=== PATIENT | male | born 1945 | race Caucasian/White ===

== ENCOUNTER 2016-04-22 18:55 | Observation (INO) | payer OTHER ==
[~2016-04-22] VITALS: Ht 180.3 cm; Wt 76.9 kg
[~2016-04-22 18:55] MED LIST: ACETAZOLAMIDE500 MG PO; ADVAIR 250/501 DISK IH; ALBUTEROL2.5 MG/3 M IH; AMOX TR-K CLV1 EAC4 PO; ASPIR-TRIN325 M1 PO; ASPIRIN EC325 MG PO; ASPIRIN325 MG PO; BRIMONIDINE TAR10 ML RIGHT EYE; CEFDINIR300 MG PO; CEFUROXIME500 MG PO; DALIRESP500 MCG PO; DIABETA1.25 MG PO; DILTIAZEM ER180 M1 PO; DOCUSATE SODIU100 MG PO; DOXYCYCLINE HY100 MG PO; DUONEB 2.5-0.5 M3 ML IH; ENDOCET 5-3251 EACH PO; FLONASE16 G1 BOTH NARES; FLORASTOR250 MG PO; LEVAQUIN750 MG PO; LEVOFLOXACIN500 MG PO; LEVOFLOXACIN750 MG PO; LISINOPRIL20 MG PO; LOPRESSOR25 MG PO; MUCINEX D1 TABLET PO; MUCINEX600 MG PO; NASONEX17 GM BOTH NARES; NICOTINE PATCH1 EAC1 TD; NICOTINE PATCH1 EAC2 TD; PANTOPRAZOLE SO40 MG PO; PERCOCET 5/31 TABLET PO; PREDNISOLONE AC15 ML RIGHT EYE; PREDNISONE10 MG PO; PREDNISONE20 MG PO; PREDNISONE5 MG PO; PREDNISONE50 MG PO; PRINIVIL20 MG PO; PRINZIDE 20-121 EACH PO; PROAIR HFA8.5 GM IH; PROTONIX40 MG PO; SIMVASTATIN40 M1 PO; SIMVASTATIN40 MG PO; SINGULAIR10 MG PO; SPIRIVA1 INHALATI IH; VIAGRA100 MG PO; ZOCOR40 MG PO; ZYRTEC10 M3 PO
[2016-04-22 19:38] LABS: EOSINOPHIL (%) 0.7 % (0-5); EOSINOPHIL COUNT 0.1 K/uL (0-0.3); HEMATOCRIT 43.5 % (38.0-50.0); IMMATURE GRANULOCYTE (%) 0.1 % (0.0-0.7); IMMATURE GRANULOCYTE COUNT 0.2 K/uL; LYMPHOCYTE COUNT 1.1 K/uL (1.0-2.8); MCH 29.1 PG (29.0-34.0); MEAN PLAT.VOLUME 10.7 uM^3 (9.0-12.4); MONOCYTE (%) 4.2 % (3-12); MONOCYTE COUNT 0.7 K/uL (0-0.8); NEUTROPHIL (%) 88.3 % (45-76); NEUTROPHIL COUNT 14.5 K/uL (1.8-6.4); PLATELET COUNT 188 K/uL (156-360); RBC DIS.WIDTH-CV 13.5 % (11.8-14.6); RBC DIS.WIDTH-SD 43.7 % (39-53); RED BLOOD COUNT 4.78 M/uL (4.00-5.50); WHITE BLOOD COUNT 16.4 K/uL (4.1-10.2)
[2016-04-22 19:50] LABS: CHLORIDE 104 mEq/L (99-109); POTASSIUM 4.3 mEq/L (3.7-5.4); SODIUM 145 mEq/L (136-147)
[2016-04-22 19:52] LABS: GLUCOSE 125 mg/dL (70-99)
[2016-04-22 19:53] LABS: ANION GAP 11 MEQ/L (2-14)
[2016-04-22 19:54] LABS: TOTAL BILIRUBIN 0.5 mg/dL (0.0-1.0)
[2016-04-22 19:56] LABS: ALKALINE PHOSPHATASE 76 IU/L (3-129); GFR ESTIMATE (CALCULATED) > 59 mL/min/
[2016-04-22 19:57] LABS: UREA NITROGEN (BUN) 14 mg/dL (9-23)
[2016-04-22 19:59] LABS: TROP-I INTERPRETATION NEGATIVE; TROPONIN-I < 0.01 ng/mL (0.0-0.30)
[2016-04-22] MEDS ORDERED: PREDNISONE5 MG PO (21:56)
[2016-04-22] MEDS ORDERED: OMEPRAZOLE40 M1 PO (21:56)
[2016-04-22] MEDS ORDERED: PENTOXIFYLLINE400 MG PO (21:57)
[2016-04-22] MEDS ORDERED: CYCLOBENZAPRINE10 MG PO (21:57)
[2016-04-22] MEDS ORDERED: CILOSTAZOL100 MG PO (21:57)
[2016-04-22 23:46] VITALS: BP 171/84
[2016-04-23 03:55] LABS: ADD MIUA? NO; BILIRUBIN NEGATIVE; BLOOD NEGATIVE; COLOR YELLOW ((YELLOW)); GLUCOSE (STRIP) 250; KETONES NEGATIVE; LEUKOCYTES NEGATIVE; NITRITE NEGATIVE; PROTEIN (STRIP) NEGATIVE; SPECIFIC GRAVITY 1.019 (1.000-1.030); UROBILINOGEN 0.2 MG/DL (0.2-1.0)
[2016-04-23 04:17] VITALS: BP 115/60
[2016-04-23 08:18] VITALS: BP 129/55
[2016-04-23] MEDS ORDERED: LEVAQUIN750 MG PO (13:38)
[2016-04-23] MEDS ORDERED: PREDNISONE10 MG PO (13:38)
== END 2016-04-23 14:18 | disposition home or self-care (01) ==
LOC: EME → EDBD 18:55 → EME 18:55 → 5WEST 22:25 → EDOF 22:25 → 5WEST 23:22
PROVIDERS: Emergency Medicine
DX: J44.1 Chronic obstructive pulmonary disease with (acute) exacerbation (principal); R09.02 Hypoxemia; R06.02 Shortness of breath; E78.5 Hyperlipidemia, unspecified; I73.9 Peripheral vascular disease, unspecified; I71.9 Aortic aneurysm of unspecified site, without rupture; F17.200 Nicotine dependence, unspecified, uncomplicated; Z79.51 Long term (current) use of inhaled steroids; Z79.82 Long term (current) use of aspirin; Z79.899 Other long term (current) drug therapy; Z88.0 Allergy status to penicillin
CPT/HCPCS: 71010; 80053; 81003; 83605; 84484; 85025; 87040; 93005; 94640; 94640 76; 94644; 94760; 94799; 99202; 99281; 99285; G0378; J1100; J1956; J2930; J3475; J7030

== ENCOUNTER → 2016-06-14 | Outpatient (CLI) | payer OTHER ==
[~2016-06-14] MED LIST changes: +CILOSTAZOL100 MG PO; +CYCLOBENZAPRINE10 MG PO; +OMEPRAZOLE40 M1 PO; +PENTOXIFYLLINE400 MG PO
== END | disposition home or self-care (01) ==
LOC: EKG 12:42
DX: Z01.810 Encounter for preprocedural cardiovascular examination (principal); I71.4 Abdominal aortic aneurysm, without rupture
CPT/HCPCS: 93306

== ENCOUNTER 2016-08-02 10:17 | Emergency (ER) | payer OTHER ==
[~2016-08-02] VITALS: Ht 177.8 cm; Wt 74.9 kg
[2016-08-02 11:25] LABS: EOSINOPHIL (%) 0.8 % (0-5); EOSINOPHIL COUNT 0.1 K/uL (0-0.3); IMMATURE GRANULOCYTE (%) 0.8 % (0.0-0.7); IMMATURE GRANULOCYTE COUNT 0.1 K/uL; INSTRUMENT ABS NEUTROPHIL CT 7.1 K/uL; LYMPHOCYTE COUNT 1.1 K/uL (1.0-2.8); MCH 26.6 PG (29.0-34.0); MCV 88.6 FL (86-99); MEAN PLAT.VOLUME 10.4 uM^3 (9.0-12.4); MONOCYTE (%) 7.2 % (3-12); MONOCYTE COUNT 0.7 K/uL (0-0.8); NEUTROPHIL (%) 79.1 % (45-76); NEUTROPHIL COUNT 7.1 K/uL (1.8-6.4); PLATELET COUNT 242 K/uL (156-360); RBC DIS.WIDTH-CV 14.6 % (11.8-14.6); RBC DIS.WIDTH-SD 47.8 % (39-53); RED BLOOD COUNT 3.95 M/uL (4.00-5.50)
[2016-08-02 11:31] LABS: INTER. NORMALIZED RATIO 1.1; PROTHROMBIN TIME 11.6 (9.2-11.2)
[2016-08-02 11:40] LABS: CHLORIDE 101 mEq/L (99-109); POTASSIUM 4.1 mEq/L (3.7-5.4); SODIUM 144 mEq/L (136-147)
[2016-08-02 11:42] LABS: GLUCOSE 118 mg/dL (70-99)
[2016-08-02 11:43] LABS: ANION GAP 7 MEQ/L (2-14)
[2016-08-02 11:46] LABS: GFR ESTIMATE (CALCULATED) > 59 mL/min/
[2016-08-02 11:47] LABS: UREA NITROGEN (BUN) 15 mg/dL (9-23)
[2016-08-02 15:21] VITALS: BP 144/80
== END 2016-08-02 15:22 | disposition home or self-care (01) ==
LOC: EME 10:17
PROVIDERS: Emergency Medicine
DX: M79.605 Pain in left leg (principal); Z98.890 Other specified postprocedural states; Z95.828 Presence of other vascular implants and grafts; I10 Essential (primary) hypertension; E78.5 Hyperlipidemia, unspecified; J44.9 Chronic obstructive pulmonary disease, unspecified; J45.909 Unspecified asthma, uncomplicated; Z95.5 Presence of coronary angioplasty implant and graft; Z99.81 Dependence on supplemental oxygen; Z79.82 Long term (current) use of aspirin; Z87.891 Personal history of nicotine dependence
CPT/HCPCS: 80048; 85025; 85610; 93005; 93926; 93971; 99281; 99284

== ENCOUNTER 2017-04-10 11:44 | Inpatient (IN) | payer OTHER ==
[~2017-04-10] VITALS: Ht 180.3 cm; Wt 77.2 kg
[~2017-04-10 11:44] MED LIST changes: +PRINIVIL10 MG PO; -PRINIVIL20 MG PO
[2017-04-10 12:44] LABS: BASOPHIL (%) 0.2 % (0-1); EOSINOPHIL (%) 0.9 % (0-5); EOSINOPHIL COUNT 0.1 K/uL (0-0.3); HEMATOCRIT 39.8 % (38.0-50.0); HEMOGLOBIN 12.8 G/DL (12.5-16.6); IMMATURE GRANULOCYTE (%) 0.4 % (0.0-0.7); LYMPHOCYTE (%) 9.4 % (15-42); MCH 27.2 PG (29.0-34.0); MCHC 32.2 G/DL (30.0-36.0); MCV 84.7 FL (86-99); MONOCYTE COUNT 0.9 K/uL (0-0.8); NEUTROPHIL (%) 81.1 % (45-76); NEUTROPHIL COUNT 8.8 K/uL (1.8-6.4); PLATELET COUNT 152 K/uL (156-360); RBC DIS.WIDTH-CV 14.3 % (11.8-14.6); RBC DIS.WIDTH-SD 44.2 % (39-53); WHITE BLOOD COUNT 10.9 K/uL (4.1-10.2)
[2017-04-10 12:54] LABS: CHLORIDE 101 mEq/L (99-109); POTASSIUM 3.7 mEq/L (3.7-5.4); SODIUM 138 mEq/L (136-147)
[2017-04-10 12:56] LABS: GLUCOSE 95 mg/dL (70-99)
[2017-04-10 13:00] LABS: CREATININE 0.6 mg/dL (0.6-1.3); GFR ESTIMATE (CALCULATED) > 59 mL/min/ (58.99-99999)
[2017-04-10 13:01] LABS: UREA NITROGEN (BUN) 11 mg/dL (9-23)
[2017-04-10] MEDS ORDERED: FLOMAX0.4 MG PO (16:57)
[2017-04-10] MEDS ORDERED: PREDNISONE10 MG PO (16:57)
[2017-04-10] MEDS ORDERED: NORCO 5/3251 TABLET PO (16:58)
[2017-04-10] MEDS ORDERED: LYRICA200 MG PO (16:58)
[2017-04-10 19:40] VITALS: BP 138/64
[2017-04-10 23:15] VITALS: BP 163/77
[2017-04-11 03:40] VITALS: BP 174/84
[2017-04-11 06:07] LABS: HEMATOCRIT 38.9 % (38.0-50.0); HEMOGLOBIN 12.3 G/DL (12.5-16.6); MCH 26.5 PG (29.0-34.0); MCHC 31.6 G/DL (30.0-36.0); MCV 83.8 FL (86-99); PLATELET COUNT 192 K/uL (156-360); RBC DIS.WIDTH-CV 14.1 % (11.8-14.6); RBC DIS.WIDTH-SD 43.1 % (39-53); RED BLOOD COUNT 4.64 M/uL (4.00-5.50); WHITE BLOOD COUNT 9.1 K/uL (4.1-10.2)
[2017-04-11 06:32] LABS: CHLORIDE 103 MEQ/L (99-109); CREATININE 0.6 MG/DL (0.6-1.3); GFR ESTIMATE (CALCULATED) > 59 mL/min/ (58.99-99999); GLUCOSE 127 mg/dL (70-99); POTASSIUM 4.1 MEQ/L (3.7-5.4); SODIUM 141 MEQ/L (136-147); UREA NITROGEN (BUN) 13 mg/dL (9-23)
[2017-04-11 07:15] VITALS: BP 144/67
[2017-04-11 11:47] VITALS: BP 110/53
[2017-04-11 16:41] VITALS: BP 128/59
[2017-04-11 19:22] VITALS: BP 129/93
[2017-04-11 23:37] VITALS: BP 143/69
[2017-04-12 03:58] VITALS: BP 133/62
[2017-04-12 07:57] VITALS: BP 147/67
[2017-04-12 12:06] VITALS: BP 142/60
[2017-04-12 15:33] VITALS: BP 136/62
[2017-04-12 18:17] LABS: BASE EXCESS 7.3 mEq/L (-3 to +3); BICARBONATE 33.9 mEq/L (22-26); CARBOXY HGB 1.8 % (0-5); COMMENTS - BLOOD GASES C+; DEVICE HHFNC; FI02 50 %; METHEMOGLOBIN 1.7 % (0-1.5); O2 FLOW 50 L/MIN; PCO2 56 mm Hg (35-45); PO2 89 mm Hg (80-100); SITE RR; TOTAL RESP RATE 24 resp/min; pH 7.39 (7.35-7.45)
[2017-04-12 19:37] VITALS: BP 146/70
[2017-04-12 23:38] VITALS: BP 144/61
[2017-04-13 03:35] VITALS: BP 151/66
[2017-04-13 07:54] VITALS: BP 163/78
[2017-04-13 11:58] VITALS: BP 135/61
[2017-04-13 17:29] VITALS: BP 156/77
[2017-04-13 20:10] VITALS: BP 155/70
[2017-04-13 23:46] VITALS: BP 151/78
[2017-04-14 04:22] VITALS: BP 138/71
[2017-04-14 06:05] LABS: MCH 26.8 PG (29.0-34.0); MCHC 30.2 G/DL (30.0-36.0); MCV 88.7 FL (86-99); PLATELET COUNT 218 K/uL (156-360); RBC DIS.WIDTH-CV 14.5 % (11.8-14.6); RBC DIS.WIDTH-SD 46.5 % (39-53); RED BLOOD COUNT 4.85 M/uL (4.00-5.50); WHITE BLOOD COUNT 14.5 K/uL (4.1-10.2)
[2017-04-14 06:34] LABS: CHLORIDE 102 MEQ/L (99-109); CREATININE 0.6 MG/DL (0.6-1.3); GFR ESTIMATE (CALCULATED) > 59 mL/min/ (58.99-99999); GLUCOSE 125 mg/dL (70-99); MAGNESIUM 2.2 mg/dl (1.3-2.7); POTASSIUM 4.4 MEQ/L (3.7-5.4); SODIUM 142 MEQ/L (136-147); UREA NITROGEN (BUN) 19 mg/dL (9-23)
[2017-04-14 08:03] VITALS: BP 170/73
[2017-04-14 16:14] VITALS: BP 168/75
[2017-04-15] VITALS: BP 171/78
[2017-04-15 08:43] VITALS: BP 167/84
[2017-04-15 15:58] VITALS: BP 179/91
[2017-04-15 22:57] VITALS: BP 135/69
[2017-04-16 06:14] LABS: HEMATOCRIT 41.1 % (38.0-50.0); HEMOGLOBIN 12.6 G/DL (12.5-16.6); MCH 26.3 PG (29.0-34.0); MCHC 30.7 G/DL (30.0-36.0); MCV 85.6 FL (86-99); PLATELET COUNT 247 K/uL (156-360); RBC DIS.WIDTH-CV 14.3 % (11.8-14.6); RBC DIS.WIDTH-SD 44.7 % (39-53); WHITE BLOOD COUNT 15.4 K/uL (4.1-10.2)
[2017-04-16 06:44] LABS: CHLORIDE 98 MEQ/L (99-109); CREATININE 0.8 MG/DL (0.6-1.3); GFR ESTIMATE (CALCULATED) > 59 mL/min/ (58.99-99999); GLUCOSE 102 mg/dL (70-99); MAGNESIUM 2.4 mg/dl (1.3-2.7); POTASSIUM 4.2 MEQ/L (3.7-5.4); SODIUM 141 MEQ/L (136-147); UREA NITROGEN (BUN) 21 mg/dL (9-23)
[2017-04-16 08:34] VITALS: BP 141/81
[2017-04-16] MEDS ORDERED: FAMOTIDINE40 MG PO (13:24)
[2017-04-16] MEDS ORDERED: ACIDOPHILUS LA1 EACH PO (13:24)
[2017-04-16] MEDS ORDERED: MUCINEX600 MG PO (13:24)
[2017-04-16] MEDS ORDERED: LEVAQUIN750 MG PO (13:26)
== END 2017-04-16 16:47 | disposition home or self-care (01) | DRG 190 ==
LOC: EME 11:44 → EDOF 14:00 → 4SOUTH 14:00 → ENRESERV 14:56 → EDOF 14:56 → ENRESERV 15:17 → 4SOUTH 17:48
PROVIDERS: Emergency Medicine; Internal Medicine; Internal Medicine Pulmonary Disease
DX: J44.0 Chronic obstructive pulmonary disease with (acute) lower respiratory infection (principal); J15.1 Pneumonia due to Pseudomonas; J96.21 Acute and chronic respiratory failure with hypoxia; J44.1 Chronic obstructive pulmonary disease with (acute) exacerbation; E78.5 Hyperlipidemia, unspecified; F17.200 Nicotine dependence, unspecified, uncomplicated; I10 Essential (primary) hypertension; Z99.81 Dependence on supplemental oxygen; I73.9 Peripheral vascular disease, unspecified; R91.1 Solitary pulmonary nodule
CPT/HCPCS: 36600; 71045; 71250; 80048; 82803; 83735; 85025; 85027; 85730; 87040; 87070; 87077; 87186; 87205; 87502; 94640; 94640 76; 94667; 94668; 94799; 99202; 99281; 99285; J0456; J0692; J0696; J1650; J2405; J2920; J2930; J7030; J7512; J7644

== ENCOUNTER 2017-06-03 01:00 | Inpatient (IN) | payer OTHER ==
[~2017-06-03] VITALS: Ht 177.8 cm; Wt 77.5 kg
[~2017-06-03 01:00] MED LIST changes: +ACIDOPHILUS LA1 EACH PO; +FAMOTIDINE40 MG PO; +FLOMAX0.4 MG PO; +LYRICA200 MG PO; +NORCO 5/3251 TABLET PO; -PRINIVIL10 MG PO; +PRINIVIL20 MG PO
[2017-06-03 01:34] LABS: HEMOGLOBIN 11.9 G/DL (12.5-16.6); MCH 27.4 PG (29.0-34.0); MCHC 32.2 G/DL (30.0-36.0); MCV 85.3 FL (86-99); PLATELET COUNT 220 K/uL (156-360); RBC DIS.WIDTH-CV 14.9 % (11.8-14.6); RBC DIS.WIDTH-SD 46.9 % (39-53); RED BLOOD COUNT 4.34 M/uL (4.00-5.50); WHITE BLOOD COUNT 12.1 K/uL (4.1-10.2)
[2017-06-03 01:45] LABS: CHLORIDE 101 mEq/L (99-109); POTASSIUM 3.5 mEq/L (3.7-5.4); SODIUM 140 mEq/L (136-147)
[2017-06-03 01:47] LABS: GLUCOSE 91 mg/dL (70-99)
[2017-06-03 01:51] LABS: CREATININE 0.6 mg/dL (0.6-1.3); GFR ESTIMATE (CALCULATED) > 59 mL/min/ (58.99-99999)
[2017-06-03 01:52] LABS: UREA NITROGEN (BUN) 12 mg/dL (9-23)
[2017-06-03 01:54] LABS: TROP-I INTERPRETATION NEGATIVE; TROPONIN-I 0.01 ng/mL (0.0-0.30)
[2017-06-03] MEDS ORDERED: LEVAQUIN750 MG PO (02:27)
[2017-06-03] MEDS ORDERED: PREDNISONE20 MG PO (02:29)
[2017-06-03 05:51] VITALS: BP 145/67
[2017-06-03] MEDS ORDERED: PEPCID40 MG PO (10:32)
[2017-06-03] MEDS ORDERED: MUCINEX600 MG PO (10:34)
[2017-06-03] MEDS ORDERED: ACIDOPHILUS LA1 EACH PO (10:36)
[2017-06-03] MEDS ORDERED: ASPERCREME76.5 GM TP (10:41)
[2017-06-03 11:00] VITALS: BP 132/63
[2017-06-03 15:00] VITALS: BP 130/65
[2017-06-03 19:15] VITALS: BP 173/78
[2017-06-03 23:58] VITALS: BP 146/63
[2017-06-04] VITALS (7 sets, daily range): BP systolic 133–176; BP diastolic 64–87
[2017-06-04 06:03] LABS: BASOPHIL (%) 0.1 % (0-1); EOSINOPHIL (%) 0 % (0-5); HEMATOCRIT 35.5 % (38.0-50.0); HEMOGLOBIN 11.1 G/DL (12.5-16.6); LYMPHOCYTE (%) 3.2 % (15-42); LYMPHOCYTE COUNT 0.4 K/uL (1.0-2.8); MCH 26.2 PG (29.0-34.0); MCHC 31.3 G/DL (30.0-36.0); MCV 83.9 FL (86-99); MONOCYTE (%) 3.5 % (3-12); MONOCYTE COUNT 0.4 K/uL (0-0.8); NEUTROPHIL (%) 92.2 % (45-76); PLATELET COUNT 261 K/uL (156-360); RBC DIS.WIDTH-CV 14.9 % (11.8-14.6); RBC DIS.WIDTH-SD 45.7 % (39-53); RED BLOOD COUNT 4.23 M/uL (4.00-5.50); WHITE BLOOD COUNT 11.9 K/uL (4.1-10.2)
[2017-06-04 06:27] LABS: CHLORIDE 104 MEQ/L (99-109); CREATININE 0.5 MG/DL (0.6-1.3); GFR ESTIMATE (CALCULATED) > 59 mL/min/ (58.99-99999); GLUCOSE 132 mg/dL (70-99); SODIUM 141 MEQ/L (136-147); UREA NITROGEN (BUN) 14 mg/dL (9-23)
[2017-06-05 03:26] VITALS: BP 160/77
[2017-06-05 05:56] LABS: HEMATOCRIT 36.8 % (38.0-50.0); HEMOGLOBIN 11.3 G/DL (12.5-16.6); MCHC 30.7 G/DL (30.0-36.0); MCV 84.6 FL (86-99); PLATELET COUNT 264 K/uL (156-360); RBC DIS.WIDTH-SD 46.3 % (39-53); RED BLOOD COUNT 4.35 M/uL (4.00-5.50)
[2017-06-05 06:14] LABS: CHLORIDE 104 MEQ/L (99-109); CREATININE 0.5 MG/DL (0.6-1.3); GFR ESTIMATE (CALCULATED) > 59 mL/min/ (58.99-99999); GLUCOSE 126 mg/dL (70-99); POTASSIUM 4.2 MEQ/L (3.7-5.4); SODIUM 142 MEQ/L (136-147); UREA NITROGEN (BUN) 16 mg/dL (9-23)
[2017-06-05 06:20] VITALS: BP 158/80
[2017-06-05 08:19] VITALS: BP 174/79
[2017-06-05] MEDS ORDERED: DOXYCYCLINE HY100 M3 PO (10:46)
[2017-06-05] MEDS ORDERED: ANECREAM30 GM TP (10:47)
[2017-06-05] MEDS ORDERED: MEDROL DOSEPAK4 MG PO (10:49)
[2017-06-06] MEDS ORDERED: DOXYCYCLINE HY100 M3 PO (07:51)
[2017-06-06] MEDS ORDERED: MEDROL DOSEPAK4 MG PO (07:52)
[2017-06-06] MEDS ORDERED: ANECREAM30 GM TP (07:52)
== END 2017-06-05 17:04 | disposition home health service (06) | DRG 194 ==
LOC: EME → EDBD 01:00 → EME 01:00 → 5EAST 04:33 → EDOF 04:33 → ENRESERV 04:38 → 5EAST 05:37 → ENPENDDIS 06-05 → 5EAST 06-05 17:04
PROVIDERS: Emergency Medicine Emergency Medical Services; Hospitalist; Internal Medicine
DX: J18.9 Pneumonia, unspecified organism (principal); J44.1 Chronic obstructive pulmonary disease with (acute) exacerbation; J44.0 Chronic obstructive pulmonary disease with (acute) lower respiratory infection; J96.11 Chronic respiratory failure with hypoxia; I10 Essential (primary) hypertension; Y95 Nosocomial condition; E78.5 Hyperlipidemia, unspecified; E87.6 Hypokalemia; J98.11 Atelectasis; E11.51 Type 2 diabetes mellitus with diabetic peripheral angiopathy without gangrene; E87.70 Fluid overload, unspecified; I73.9 Peripheral vascular disease, unspecified; D64.9 Anemia, unspecified; Z79.899 Other long term (current) drug therapy; Z99.81 Dependence on supplemental oxygen; Z87.891 Personal history of nicotine dependence; Z87.01 Personal history of pneumonia (recurrent)
CPT/HCPCS: 71045; 71275; 80048; 80202; 83605; 84484; 85025; 85027; 85379; 87040; 93005; 94640; 94640 76; 94644; 94799; 99202; 99281; 99285; J0692; J1644; J1956; J2270; J2920; J2930; J3370; J3475; J7030; J7040; J7512; J7644

== ENCOUNTER 2017-06-06 03:56 | Inpatient (IN) | payer OTHER ==
[~2017-06-06] VITALS: Ht 182.9 cm; Wt 74.3 kg
[~2017-06-06 03:56] MED LIST changes: +ANECREAM30 GM TP; +ASPERCREME76.5 GM TP; +DOXYCYCLINE HY100 M3 PO; +MEDROL DOSEPAK4 MG PO; +PEPCID40 MG PO
[2017-06-06 05:17] LABS: CARBON DIOXIDE (BICARBONATE) 38.1 MEQ/L (20-31)
[2017-06-06 05:31] LABS: ALBUMIN 3.7 g/dL (3.2-4.8); CHLORIDE 100 mEq/L (99-109); SODIUM 140 mEq/L (136-147)
[2017-06-06 05:33] LABS: TOTAL PROTEIN 6.2 g/dL (6.4-8.3)
[2017-06-06 05:35] LABS: HEMATOCRIT 39.4 % (38.0-50.0); HEMOGLOBIN 12.6 G/DL (12.5-16.6); MCH 26.8 PG (29.0-34.0); MCV 83.7 FL (86-99); PLATELET COUNT 270 K/uL (156-360); RBC DIS.WIDTH-CV 14.9 % (11.8-14.6); RBC DIS.WIDTH-SD 45.2 % (39-53); RED BLOOD COUNT 4.71 M/uL (4.00-5.50); WHITE BLOOD COUNT 11.6 K/uL (4.1-10.2)
[2017-06-06 05:35] LABS: TOTAL BILIRUBIN 0.4 mg/dL (0.0-1.0)
[2017-06-06 05:36] LABS: ALKALINE PHOSPHATASE 90 IU/L (3-129)
[2017-06-06 05:37] LABS: CREATININE 0.6 mg/dL (0.6-1.3); GFR ESTIMATE (CALCULATED) > 59 mL/min/ (58.99-99999)
[2017-06-06 05:38] LABS: AST (GOT) 13 IU/L (2-34); UREA NITROGEN (BUN) 10 mg/dL (9-23)
[2017-06-06 05:40] LABS: ALT (GPT) 5 IU/L (3-49); LIPASE 25 U/L (1.0-51.0)
[2017-06-06 05:41] LABS: TROP-I INTERPRETATION NEGATIVE; TROPONIN-I < 0.01 ng/mL (0.0-0.30)
[2017-06-06 05:55] LABS: GLUCOSE 91 mg/dL (70-99); POTASSIUM 3.2 mEq/L (3.7-5.4)
[2017-06-06] MEDS ORDERED: DOXYCYCLINE HY100 M3 PO (07:51)
[2017-06-06] MEDS ORDERED: ANECREAM30 GM TP (07:52)
[2017-06-06] MEDS ORDERED: MEDROL DOSEPAK4 MG PO (07:52)
[2017-06-06 11:05] VITALS: BP 159/84
[2017-06-06 12:17] LABS: TROP-I INTERPRETATION NEGATIVE; TROPONIN-I < 0.01 ng/mL (0.0-0.30)
[2017-06-06 16:02] VITALS: BP 160/72
[2017-06-06 18:18] LABS: TROP-I INTERPRETATION NEGATIVE; TROPONIN-I < 0.01 ng/mL (0.0-0.30)
[2017-06-06 20:01] VITALS: BP 164/76
[2017-06-07] VITALS: BP 155/72
[2017-06-07 04:00] VITALS: BP 157/80
[2017-06-07 05:27] LABS: BASOPHIL (%) 0.1 % (0-1); EOSINOPHIL (%) 0 % (0-5); HEMATOCRIT 41.7 % (38.0-50.0); HEMOGLOBIN 13.1 G/DL (12.5-16.6); IMMATURE GRANULOCYTE (%) 1.1 % (0.0-0.7); LYMPHOCYTE (%) 5.3 % (15-42); LYMPHOCYTE COUNT 0.8 K/uL (1.0-2.8); MCH 26.3 PG (29.0-34.0); MCHC 31.4 G/DL (30.0-36.0); MCV 83.7 FL (86-99); MONOCYTE (%) 4.7 % (3-12); MONOCYTE COUNT 0.7 K/uL (0-0.8); NEUTROPHIL (%) 88.8 % (45-76); NEUTROPHIL COUNT 13.2 K/uL (1.8-6.4); PLATELET COUNT 333 K/uL (156-360); RBC DIS.WIDTH-SD 45.9 % (39-53); RED BLOOD COUNT 4.98 M/uL (4.00-5.50); WHITE BLOOD COUNT 14.8 K/uL (4.1-10.2)
[2017-06-07 05:52] LABS: CHLORIDE 102 MEQ/L (99-109); CREATININE 0.7 MG/DL (0.6-1.3); GFR ESTIMATE (CALCULATED) > 59 mL/min/ (58.99-99999); GLUCOSE 108 mg/dL (70-99); SODIUM 142 MEQ/L (136-147); UREA NITROGEN (BUN) 15 mg/dL (9-23)
[2017-06-07 08:00] VITALS: BP 150/70
[2017-06-07 12:00] VITALS: BP 153/75
[2017-06-07 16:00] VITALS: BP 167/76
[2017-06-07 20:00] VITALS: BP 140/67
[2017-06-08 01:09] VITALS: BP 153/74
[2017-06-08 04:01] VITALS: BP 142/87
[2017-06-08 07:02] LABS: BASOPHIL (%) 0.2 % (0-1); EOSINOPHIL (%) 0 % (0-5); HEMATOCRIT 41.8 % (38.0-50.0); HEMOGLOBIN 13.5 G/DL (12.5-16.6); IMMATURE GRANULOCYTE (%) 1.5 % (0.0-0.7); LYMPHOCYTE (%) 6.4 % (15-42); LYMPHOCYTE COUNT 0.9 K/uL (1.0-2.8); MCH 26.9 PG (29.0-34.0); MCHC 32.3 G/DL (30.0-36.0); MCV 83.4 FL (86-99); MONOCYTE (%) 4.8 % (3-12); MONOCYTE COUNT 0.7 K/uL (0-0.8); NEUTROPHIL (%) 87.1 % (45-76); NEUTROPHIL COUNT 12.3 K/uL (1.8-6.4); PLATELET COUNT 285 K/uL (156-360); RBC DIS.WIDTH-CV 15.3 % (11.8-14.6); RBC DIS.WIDTH-SD 46.3 % (39-53); RED BLOOD COUNT 5.01 M/uL (4.00-5.50); WHITE BLOOD COUNT 14.1 K/uL (4.1-10.2)
[2017-06-08 07:30] LABS: ALBUMIN 3.9 G/DL (3.2-4.8); ALKALINE PHOSPHATASE 84 IU/L (3-129); ALT (GPT) 5 IU/L (3-49); AST (GOT) 10 IU/L (2-34); CHLORIDE 101 MEQ/L (99-109); CREATININE 0.6 MG/DL (0.6-1.3); GFR ESTIMATE (CALCULATED) > 59 mL/min/ (58.99-99999); GLUCOSE 103 mg/dL (70-99); POTASSIUM 3.9 MEQ/L (3.7-5.4); SODIUM 141 MEQ/L (136-147); TOTAL BILIRUBIN 0.5 MG/DL (0.0-1.0); TOTAL PROTEIN 5.9 G/DL (6.4-8.3); UREA NITROGEN (BUN) 17 mg/dL (9-23)
[2017-06-08 08:00] VITALS: BP 170/86
[2017-06-08 14:23] LABS: HEMOGLOBIN A1c (GLYCOHEMOGLOB) 5.4 % (Below 5.7)
[2017-06-08 15:01] VITALS: BP 141/79
[2017-06-08 19:44] VITALS: BP 137/67
[2017-06-08 23:42] VITALS: BP 164/74
[2017-06-09 04:00] VITALS: BP 159/79
[2017-06-09 06:25] LABS: BASOPHIL (%) 0.3 % (0-1); BASOPHIL COUNT 0.1 K/uL (0-0.1); EOSINOPHIL (%) 0 % (0-5); HEMATOCRIT 42.5 % (38.0-50.0); HEMOGLOBIN 13.6 G/DL (12.5-16.6); IMMATURE GRANULOCYTE (%) 1.9 % (0.0-0.7); LYMPHOCYTE COUNT 0.8 K/uL (1.0-2.8); MCH 26.4 PG (29.0-34.0); MCV 82.5 FL (86-99); MONOCYTE (%) 3.5 % (3-12); MONOCYTE COUNT 0.6 K/uL (0-0.8); NEUTROPHIL (%) 89.3 % (45-76); NEUTROPHIL COUNT 14.2 K/uL (1.8-6.4); PLATELET COUNT 298 K/uL (156-360); RBC DIS.WIDTH-CV 15.4 % (11.8-14.6); RED BLOOD COUNT 5.15 M/uL (4.00-5.50); WHITE BLOOD COUNT 15.9 K/uL (4.1-10.2)
[2017-06-09 06:44] LABS: ALBUMIN 3.7 G/DL (3.2-4.8); ALKALINE PHOSPHATASE 80 IU/L (3-129); ALT (GPT) 6 IU/L (3-49); AST (GOT) 9 IU/L (2-34); CHLORIDE 99 MEQ/L (99-109); CREATININE 0.6 MG/DL (0.6-1.3); GFR ESTIMATE (CALCULATED) > 59 mL/min/ (58.99-99999); GLUCOSE 138 mg/dL (70-99); POTASSIUM 4.1 MEQ/L (3.7-5.4); SODIUM 139 MEQ/L (136-147); TOTAL BILIRUBIN 0.5 MG/DL (0.0-1.0); TOTAL PROTEIN 5.7 G/DL (6.4-8.3); UREA NITROGEN (BUN) 22 mg/dL (9-23)
[2017-06-09 06:57] VITALS: BP 147/81
[2017-06-09] MEDS ORDERED: LEVAQUIN750 MG PO (11:52)
== END 2017-06-09 12:41 | disposition home health service (06) | DRG 194 ==
LOC: EME → EDBD 03:56 → EME 03:56 → EDOF 08:33 → 5SOUTH 08:33 → ENRESERV 08:53 → 5SOUTH 10:47 → ENPENDDIS 06-09 12:02 → 5SOUTH 06-09 12:41
PROVIDERS: Emergency Medicine; Hospitalist; Internal Medicine
DX: J15.9 Unspecified bacterial pneumonia (principal); J44.1 Chronic obstructive pulmonary disease with (acute) exacerbation; J96.11 Chronic respiratory failure with hypoxia; J96.12 Chronic respiratory failure with hypercapnia; E11.9 Type 2 diabetes mellitus without complications; J44.0 Chronic obstructive pulmonary disease with (acute) lower respiratory infection; E78.5 Hyperlipidemia, unspecified; I10 Essential (primary) hypertension; I73.9 Peripheral vascular disease, unspecified; Y95 Nosocomial condition; E87.6 Hypokalemia; R91.8 Other nonspecific abnormal finding of lung field; G89.29 Other chronic pain; Z99.81 Dependence on supplemental oxygen; Z87.891 Personal history of nicotine dependence; Z86.79 Personal history of other diseases of the circulatory system
CPT/HCPCS: 71045; 71046; 73564; 80048; 80053; 80202; 82803; 82948; 83036; 83690; 83880; 84484; 85025; 85027; 87040; 87070; 87205; 87449; 93005; 93306; 94640; 94640 76; 94668; 94799; 99202; 99281; 99285; J0692; J1100; J1650; J1815; J2920; J2930; J3370; J3475; J3480; J7030; J7050; J7644

== ENCOUNTER 2017-09-15 13:13 | Inpatient (IN) | payer OTHER ==
[~2017-09-15] VITALS: Ht 180.3 cm; Wt 77.1 kg
[~2017-09-15 13:13] MED LIST changes: -PRINIVIL20 MG PO; +PRINIVIL5 MG PO
[2017-09-15] MEDS ORDERED: HYDROCODON-ACE1 EAC7 PO (13:34)
[2017-09-15] MEDS ORDERED: CYMBALTA30 MG PO (13:36)
[2017-09-15] MEDS ORDERED: DALIRESP500 MCG PO (13:37)
[2017-09-15 14:32] LABS: HEMATOCRIT 37.3 % (38.0-50.0); HEMOGLOBIN 11.7 G/DL (12.5-16.6); MCH 26.7 PG (29.0-34.0); MCHC 31.4 G/DL (30.0-36.0); MCV 85.2 FL (86-99); PLATELET COUNT 264 K/uL (156-360); RBC DIS.WIDTH-CV 15.1 % (11.8-14.6); RBC DIS.WIDTH-SD 47.2 % (39-53); RED BLOOD COUNT 4.38 M/uL (4.00-5.50); WHITE BLOOD COUNT 10.8 K/uL (4.1-10.2)
[2017-09-15 14:40] LABS: ALBUMIN 3.6 g/dL (3.2-4.8); CHLORIDE 101 mEq/L (99-109); POTASSIUM 3.7 mEq/L (3.7-5.4); SODIUM 142 mEq/L (136-147)
[2017-09-15 14:43] LABS: GLUCOSE 151 mg/dL (70-99); TOTAL PROTEIN 6.2 g/dL (6.4-8.3)
[2017-09-15 14:44] LABS: TOTAL BILIRUBIN 0.4 mg/dL (0.0-1.0)
[2017-09-15 14:46] LABS: ALKALINE PHOSPHATASE 90 IU/L (3-129); CREATININE 0.7 mg/dL (0.6-1.3); GFR ESTIMATE (CALCULATED) > 59 mL/min/ (58.99-99999)
[2017-09-15 14:47] LABS: UREA NITROGEN (BUN) 15 mg/dL (9-23)
[2017-09-15 14:48] LABS: AST (GOT) 9 IU/L (2-34)
[2017-09-15 14:49] LABS: ALT (GPT) 3 IU/L (3-49)
[2017-09-15 14:55] LABS: TROP-I INTERPRETATION NEGATIVE; TROPONIN-I < 0.01 ng/mL (0.0-0.30)
[2017-09-15] MEDS ORDERED: LIDODERM 5% P1 PATCH TD (16:00)
[2017-09-15 20:37] VITALS: BP 144/61
[2017-09-15 23:01] VITALS: BP 141/61
[2017-09-16 06:28] LABS: BASOPHIL (%) 0.5 % (0-1); BASOPHIL COUNT 0.1 K/uL (0-0.1); EOSINOPHIL (%) 1.1 % (0-5); EOSINOPHIL COUNT 0.1 K/uL (0-0.3); IMMATURE GRANULOCYTE (%) 1.1 % (0.0-0.7); LYMPHOCYTE COUNT 1.3 K/uL (1.0-2.8); MCH 25.9 PG (29.0-34.0); MCHC 30.6 G/DL (30.0-36.0); MCV 84.7 FL (86-99); MONOCYTE (%) 9.3 % (3-12); NEUTROPHIL COUNT 7.7 K/uL (1.8-6.4); PLATELET COUNT 299 K/uL (156-360); RBC DIS.WIDTH-SD 46.5 % (39-53); RED BLOOD COUNT 4.25 M/uL (4.00-5.50); WHITE BLOOD COUNT 10.3 K/uL (4.1-10.2)
[2017-09-16 07:12] LABS: CHLORIDE 103 MEQ/L (99-109); CREATININE 0.5 MG/DL (0.6-1.3); GFR ESTIMATE (CALCULATED) > 59 mL/min/ (58.99-99999); POTASSIUM 3.6 MEQ/L (3.7-5.4); SODIUM 145 MEQ/L (136-147); UREA NITROGEN (BUN) 13 mg/dL (9-23)
[2017-09-16 07:22] VITALS: BP 140/69
[2017-09-16 07:28] LABS: GLUCOSE 85 mg/dL (70-99)
[2017-09-16 10:42] LABS: APPEARANCE CLEAR ((CLEAR)); BILIRUBIN NEGATIVE; BLOOD NEGATIVE; COLOR YELLOW ((YELLOW)); GLUCOSE (STRIP) NEGATIVE; KETONES NEGATIVE; LEUKOCYTES NEGATIVE; NITRITE NEGATIVE; PROTEIN (STRIP) NEGATIVE; SPECIFIC GRAVITY 1.024 (1.000-1.030); UCUL ADDED? NO; UROBILINOGEN 0.2 MG/DL (0.2-1.0)
[2017-09-16 12:00] VITALS: BP 113/58
[2017-09-16 15:55] VITALS: BP 133/61
[2017-09-16 19:34] VITALS: BP 142/66
[2017-09-16 22:49] VITALS: BP 149/65
[2017-09-17 03:19] VITALS: BP 137/76
[2017-09-17 07:10] VITALS: BP 129/59
[2017-09-17 12:00] VITALS: BP 143/72
[2017-09-17 16:30] VITALS: BP 180/74
[2017-09-17 18:59] VITALS: BP 147/68
[2017-09-17 23:05] VITALS: BP 157/74
[2017-09-18 03:38] VITALS: BP 167/69
[2017-09-18 06:35] LABS: BASOPHIL (%) 0.1 % (0-1); EOSINOPHIL (%) 0.1 % (0-5); HEMATOCRIT 35.9 % (38.0-50.0); HEMOGLOBIN 11.4 G/DL (12.5-16.6); IMMATURE GRANULOCYTE (%) 1.1 % (0.0-0.7); LYMPHOCYTE COUNT 1.2 K/uL (1.0-2.8); MCH 26.3 PG (29.0-34.0); MCHC 31.8 G/DL (30.0-36.0); MCV 82.9 FL (86-99); MONOCYTE (%) 7.6 % (3-12); MONOCYTE COUNT 1.1 K/uL (0-0.8); NEUTROPHIL (%) 83.1 % (45-76); PLATELET COUNT 304 K/uL (156-360); RBC DIS.WIDTH-CV 14.7 % (11.8-14.6); RBC DIS.WIDTH-SD 44.7 % (39-53); RED BLOOD COUNT 4.33 M/uL (4.00-5.50); WHITE BLOOD COUNT 14.5 K/uL (4.1-10.2)
[2017-09-18 06:50] LABS: CHLORIDE 102 MEQ/L (99-109); CREATININE 0.5 MG/DL (0.6-1.3); GFR ESTIMATE (CALCULATED) > 59 mL/min/ (58.99-99999); GLUCOSE 94 mg/dL (70-99); SODIUM 142 MEQ/L (136-147); UREA NITROGEN (BUN) 20 mg/dL (9-23)
[2017-09-18 07:17] VITALS: BP 148/67
[2017-09-18] MEDS ORDERED: DOXYCYCLINE HY100 M3 PO (10:45)
[2017-09-18] MEDS ORDERED: PREDNISONE10 M1 PO (10:49)
== END 2017-09-18 12:38 | disposition home health service (06) | DRG 189 ==
LOC: EME 13:13 → ENRESERV 17:45 → 5EAST 17:49 → EDOF 17:49 → ENRESERV 19:39 → 5EAST 20:26
PROVIDERS: Hospitalist; Internal Medicine; Physician Assistant
DX: J96.21 Acute and chronic respiratory failure with hypoxia (principal); J15.9 Unspecified bacterial pneumonia; J44.0 Chronic obstructive pulmonary disease with (acute) lower respiratory infection; J44.1 Chronic obstructive pulmonary disease with (acute) exacerbation; I10 Essential (primary) hypertension; E11.51 Type 2 diabetes mellitus with diabetic peripheral angiopathy without gangrene; E11.65 Type 2 diabetes mellitus with hyperglycemia; G89.29 Other chronic pain; E78.5 Hyperlipidemia, unspecified; R00.0 Tachycardia, unspecified; E73.9 Lactose intolerance, unspecified; Z99.81 Dependence on supplemental oxygen; Z86.79 Personal history of other diseases of the circulatory system; Z87.01 Personal history of pneumonia (recurrent); Z87.891 Personal history of nicotine dependence; Z88.1 Allergy status to other antibiotic agents; Z80.1 Family history of malignant neoplasm of trachea, bronchus and lung
CPT/HCPCS: 71046; 71275; 80048; 80053; 81003; 82948; 83605; 83880; 84484; 85025; 85027; 87040; 87070; 87205; 87449; 93005; 93971; 94640; 94640 76; 94760; 94799; 99202; 99281; 99285; J0696; J1644; J1956; J2920; J7030; J7512

== ENCOUNTER 2017-10-28 21:17 | Inpatient (IN) | payer OTHER ==
[~2017-10-28] VITALS: Ht 177.8 cm; Wt 73.4 kg
[~2017-10-28 21:17] MED LIST changes: +CYMBALTA30 MG PO; +HYDROCODON-ACE1 EAC7 PO; +LIDODERM 5% P1 PATCH TD; +PREDNISONE10 M1 PO
[2017-10-28 21:50] LABS: BASOPHIL (%) 0.1 % (0-1); EOSINOPHIL (%) 0.2 % (0-5); HEMATOCRIT 39.8 % (38.0-50.0); HEMOGLOBIN 12.4 G/DL (12.5-16.6); IMMATURE GRANULOCYTE (%) 1.2 % (0.0-0.7); LYMPHOCYTE (%) 7.7 % (15-42); LYMPHOCYTE COUNT 1.5 K/uL (1.0-2.8); MCH 26.2 PG (29.0-34.0); MCHC 31.2 G/DL (30.0-36.0); MONOCYTE (%) 5.6 % (3-12); MONOCYTE COUNT 1.1 K/uL (0-0.8); NEUTROPHIL (%) 85.2 % (45-76); NEUTROPHIL COUNT 16.9 K/uL (1.8-6.4); PLATELET COUNT 288 K/uL (156-360); RBC DIS.WIDTH-CV 15.4 % (11.8-14.6); RBC DIS.WIDTH-SD 47.3 % (39-53); RED BLOOD COUNT 4.74 M/uL (4.00-5.50); WHITE BLOOD COUNT 19.8 K/uL (4.1-10.2)
[2017-10-28 22:01] LABS: CHLORIDE 101 mEq/L (99-109); POTASSIUM 3.7 mEq/L (3.7-5.4); SODIUM 143 mEq/L (136-147)
[2017-10-28 22:02] LABS: MAGNESIUM 1.8 mg/dL (1.3-2.7)
[2017-10-28 22:03] LABS: GLUCOSE 105 mg/dL (70-99)
[2017-10-28 22:06] LABS: CREATININE 0.6 mg/dL (0.6-1.3); GFR ESTIMATE (CALCULATED) > 59 mL/min/ (58.99-99999)
[2017-10-28 22:07] LABS: UREA NITROGEN (BUN) 22 mg/dL (9-23)
[2017-10-28 22:14] LABS: TROP-I INTERPRETATION NEGATIVE; TROPONIN-I < 0.01 ng/mL (0.0-0.30)
[2017-10-28] MEDS ORDERED: LISINOPRIL2.5 MG PO (23:50)
[2017-10-29] VITALS (7 sets, daily range): BP systolic 131–184; BP diastolic 67–80
[2017-10-29] MEDS ORDERED: PREDNISONE10 MG PO (00:04)
[2017-10-29] MEDS ORDERED: DULOXETINE HCL30 MG PO (00:05)
[2017-10-29] MEDS ORDERED: MONTELUKAST SOD10 MG PO (00:05)
[2017-10-29] MEDS ORDERED: LISINOPRIL20 MG PO (00:06)
[2017-10-29] MEDS ORDERED: SIMVASTATIN40 MG PO (00:06)
[2017-10-29] MEDS ORDERED: METHYLPREDNISOLO4 M1 PO (00:12)
[2017-10-30 04:06] VITALS: BP 152/70
[2017-10-30 08:42] VITALS: BP 159/68
[2017-10-30 12:26] VITALS: BP 176/62
[2017-10-30 15:54] VITALS: BP 172/69
[2017-10-30 19:52] VITALS: BP 188/84
[2017-10-31 00:31] VITALS: BP 168/69
[2017-10-31 05:12] VITALS: BP 160/78
[2017-10-31 08:06] VITALS: BP 136/73
[2017-10-31 08:08] VITALS: BP 115/80
[2017-10-31 11:27] VITALS: BP 139/77
[2017-10-31] MEDS ORDERED: PREDNISONE20 MG PO (13:30)
== END 2017-10-31 15:28 | disposition home or self-care (01) | DRG 190 ==
LOC: EME → EDBD 21:17 → EDOF 10-29 01:21 → 3EAST 10-29 01:21
PROVIDERS: Emergency Medicine; Hospitalist
DX: J44.1 Chronic obstructive pulmonary disease with (acute) exacerbation (principal); J96.21 Acute and chronic respiratory failure with hypoxia; Z99.81 Dependence on supplemental oxygen; E78.5 Hyperlipidemia, unspecified; Z86.79 Personal history of other diseases of the circulatory system; Z87.01 Personal history of pneumonia (recurrent); Z87.891 Personal history of nicotine dependence; Z79.82 Long term (current) use of aspirin
CPT/HCPCS: 71045; 71046; 80048; 80202; 82948; 83605; 83735; 84145 90; 84484; 85025; 87040; 93005; 94640; 94667; 94668; 94669; 94799; 99281; 99285; J0692; J1644; J1956; J2920; J3370; J3475; J7512; S0028